=== PATIENT | female | born 1950 | race Caucasian/White ===

== ENCOUNTER 2017-11-19 02:53 | Inpatient (IN) | payer OTHER, MEDICARE ==
[~2017-11-19] VITALS: Ht 157.5 cm; Wt 55.6 kg
[~2017-11-19 02:53] MED LIST: ALBUTEROL0.09 MG/A1 INH; ALIGN4 M1 PO; ATORVASTATIN CA20 MG PO; AUGMENTIN 875875 MG PO; CALCIUM 600 PLU1 TAB PO; CIPRO 500MG TA500 MG PO; CIPROFLOXACIN500 MG PO; CLEOCIN HCL150 MG PO; FLAG500 PO; LIPITOR20 M2 PO; LOSARTAN POTAS100 M1 PO; LOSARTAN POTAS100 MG PO; METRONIDAZOLE500 MG PO; PROLIA60 MG/1 ML; PROMETHAZINE12.5 M2 PO; TESSALON PERLE100 MG PO; TIMOLOL MALEATE10 M1 OD; TRAMADOL50 MG PO; TRIAMCINOLONE 0.1 GM TOP; TRIAMCINOLONE A15 G2; ULTRAM(MONOGRAP50 MG PO; VITAMIN D31000 UNI2 PO; VOLTAREN100 GM TOP; XALATAN2.5 ML OPH; ZOFRAN ODT4 MG SL
[2017-11-19] MEDS ORDERED: ZANTAC150 M1 PO (10:22)
--- NOTE | 2017-11-19 15:15 | Operative Report ---
Operative/Inv Procedure Report Surgery Date: 11/19/17 Name of Procedure: 1. Laparoscopic sigmoid colectomy 2. Laparoscopic takedown splenic flexure Pre-Operative Diagnosis: Chronic diverticulitis Post-Operative Diagnosis: Same Estimated Blood Loss: less than 50ml Surgeon/Firewall Security Engineer: Freddy JIMENEZ,Blade Tatum/Kailash LOERA Anesthesia: general endotracheal tube Drains: None Specimens: Sigmoid colon Complications: None Operative Indication: 67-year-old woman with chronic, recurrent sigmoid diverticulitis presents for elective resection Operative/Procedure Note Note: Patient brought to the operative laid supine. Gen. anesthesia was obtained and she placed in lithotomy position. Her abdomen was prepped and draped. The suprapubic umbilical region was infiltrated local anesthesia and a transverse incision made sharply. We dissected down the fascia which was grasped with [place]'s and a fasciotomy created sharply. Stay sutures placed and a blunt Colon port was placed. Pneumoperitoneum was achieved. A 5 mA ports placed the suprapubic region, a 5 mm port was placed in the left mid abdomen and a 12 mm ports placed in the right lower quadrant after local anesthesia instilled under direct vision the camera. She's placed in Trendelenburg and rotated towards the right. The abdomen was explored. The small bowel was mobilized out of the pelvis and placed in the right upper quadrant. There were numerous adhesions of sigmoid colon in the pelvis. These were taken down with cautery thus allowing mobilization of it. There is an area of chronic inflammation in the distal sigmoid which appeared to be either a large diverticulum or contained perforation. There is no abscess. We chose our lines of transection and marked the bowel with cautery. We then mobilized the bowel laterally along the white line of Toldt. Then took down the mesentery on the proximal aspect up to the level the bowel. This was performed with the LigaSure device. We identified the left ureter, it was well out of our operative field. The sigmoid vessels were then taken down with the LigaSure device to the rectosigmoid junction, which was very low lying in the pelvis. We dissected down to the rectal wall. At this point it appeared that we would not have enough length to create a tension-free anastomosis. I decided to take down the left colon completely including the splenic flexure. She's placed in reverse Trendelenburg to accomplish this. Dissection was carried forth with LigaSure and cautery dissection. Once the splenic flexure was taken down was clear that we had plenty of length. The rectosigmoid junction was then divided with the Endo TOMMY purple load. I then created a small Pfannenstiel incision sharply and with cautery. We incised the fascia longitudinally and placed the Alonso retractor. The cut end of the bowel was then brought up through the wound and purse juan placed on the proximal margin. The sigmoid was transected and passed off the field. The pursestring was opened and sized. The bowel was very small and 25 mm anvil was the largest sizer we could place. We therefore chose a 25 mm anvil placed into the cut end the bowel and cinched up. The fatty tissue overlying the anastomosis was taken off with cautery. Large diverticulum was imbricated into the central aspect of the anvil with 3-0 silk. Once were happy with the left colon and replaced into the perineal cavity and remove the Alonso. The fascia was closed with 0 Maxon suture. We regained pneumoperitoneum and position the patient back in Trendelenburg. I broke scrub and went below and sized the rectum to a 25 EEA. The staplers placed up through the rectum to the upper portions of it. An end-to-end anastomosis was then created laparoscopically. 2 intact donuts were seen. The anastomosis was then tested under water with air insufflation. There was no leak of air. We then evacuated the gas and concluded the operation. The ports were delivered and passed off the field. The fascia was closed with 0 Vicryl suture. Skin incisions closed with sobia. Sterile dressings were applied sponge and needle counts are correct CC: Victor Hugo JIMENEZ,Everett Patel; Shanel Wheeler APRN
--- NOTE | 2017-11-19 15:29 | Admission Core Measures ---
Acute Coronary Syndrome (CM) ACS Core Measures Acute Coronary Syndrome Diagnosis No Congestive Heart Failure (NEW) CHF Core Measures Congestive Heart Failure Diagnosis No Cerebrovascular Accident (NEW) CVA Core Measures CVA/TIA Diagnosis No Venous Thromboembolism VTE Core Dot (View Protocol) VTE Risk Factors No risk factors No Mechanical VTE Prophylaxis d/t N/A MechProphylax Ordered No VTE Pharm Prophylaxis d/t NA PharmProphylax ordered Problem List As ranked by this Provider includes Assessment & Plan 1. S/P laparoscopic-assisted sigmoidectomy HOME MEDS Home Med List Atorvastatin Calcium (Lipitor) 20 MG TABLET 1 TAB PO DAILY CHOLESTEROL ( Reported) Cholecalciferol (Vitamin D3) 1,000 IU TAB 1 TAB PO DAILY SUPPLEMENT (Reported ) Latanoprost (Xalatan 0.005% 2.5 Ml) 50 GTT/1 BOT GTT 1 GTT OPH NIGHTLY GLAUCOMA - BOTH EYES (Reported) Losartan Potassium 100 MG TABLET 1 TAB PO DAILY BP (Reported) Ranitidine HCl (Zantac) 150 MG TABLET 1 TAB PO BID PRN heartburn (Reported) Timolol Maleate (Timolol Maleate 10 Ml) 10 ML HUY 1 GTT OD QAM GLAUCOMA ( Reported)
[2017-11-19 18:15] VITALS: BP 126/64
--- NOTE | 2017-11-19 19:40 | PN- General Surgery ---
Subjective Subjective: poc s/p lap sigmoid colectomy 05/15 abdominal pain denies cp, sob, no n+v Objective Vital Signs and I&Os Vital Signs Date Time Temp Pulse Resp B/P B/P Pulse O2 O2 Flow FiO2 Mean Ox Delivery Rate 11/19 1815 97.6 74 18 126/64 95 Room Air Physical Exam: cv; rrr lungs: clear abd: soft, drsgs dry expected tenderness to palp ext: warm, distal cms intact Assessment/Plan Assessment/Plan surgical stable plan titrate pain meds hep sq/alps for dvt prophylaxis oob ambulate with assistance Core Measures Venous Thromboembolism VTE Risk Factors No risk factors No Mechanical VTE Prophylaxis d/t N/A MechProphylax Ordered No VTE Pharm Prophylaxis d/t NA PharmProphylax ordered
[2017-11-19 20:00] VITALS: BP 118/70
[2017-11-20 05:00] VITALS: BP 112/72
--- NOTE | 2017-11-20 07:37 | PN- General Surgery ---
See Addendum Subjective Subjective: No acute overnight events reported. Pt states that she is sore but tolerating discomfort. No nausea or vomitting. No hiccupping or belching. No flatus. Has yet to ambulate. Was very tired post op and did not take in more than a few sips of clears. Reports discomfort with stafford catheter, would prefer to void. Objective Vital Signs and I&Os Vital Signs Date Time Temp Pulse Resp B/P B/P Pulse O2 O2 Flow FiO2 Mean Ox Delivery Rate 11/20 0500 99.6 65 18 112/72 94 Room Air 11/19 1999 98.3 73 18 118/70 96 Room Air 11/19 1815 97.6 74 18 126/64 95 Room Air Intake & Output 11/20 0811/20 0000 11/19 1600 11/19 0811/19 0000 11/18 1600 Intake Total 240 240 Output Total Balance 240 240 Intake, Oral 240 240 Patient 123 lb Weight Weight Standing Scale Measurement Method Physical Exam: General: Alert and oriented x3, no acute distress Cardiac: RRR, s1s2 Pulm: CTA bilaterally, non-labored respiratory effort, no supplemental o2 Abd: Softly distended, jaclyn-incisional tenderness but no peritonitic signs. Normoactive bowel sounds auscultated. Dressings dry and intact. No surrounding erythema. Extremities: Moves all extremities, distal sensation grossly intact. Skin warm and wll perfused. DP pulses palpable bilaterally. ALPS in place. Bilateral calves soft and nontender Assessment/Plan Assessment/Plan This is a 67 year old, POD 1, s/p lap sigmoid colectomy for diverticulitis -DC stafford catheter this am -IV fluids to 50 for now, dc when tolerating adequate po, likely later this am -Continue ALPS/hep sub q for dvt ppx -OOB encouraged -Incentive spirometry encouraged -Await return of bowel function Will discuss poc with Dr. Hayes Core Measures Venous Thromboembolism VTE Risk Factors No risk factors No Mechanical VTE Prophylaxis d/t N/A MechProphylax Ordered No VTE Pharm Prophylaxis d/t NA PharmProphylax ordered
[2017-11-20 08:29] LABS: ABSOLUTE BASOPHIL COUNT 0 /CUMM (0.0-0.2); ABSOLUTE EOSINOPHIL COUNT 0 /CUMM (0.0-0.7); ABSOLUTE GRANULOCYTE CT 10.9 /CUMM (1.4-6.5); ABSOLUTE LYMPH COUNT 0.8 /CUMM (1.2-3.4); ABSOLUTE MONOCYTE COUNT 1.1 /CUMM (0.10-0.60); BASOPHIL % 0.1 % (0.0-2.0); EOSINOPHIL % 0 % (0-5); HEMATOCRIT 34.3 % (37-47); MEAN CORPUSCULAR HGB 30.7 PG (27.0-31.0); MEAN CORPUSCULAR HGB CONC 34.6 G/DL (33.0-37.0); MEAN CORPUSCULAR VOLUME 88.8 FL (81.0-99.0); MEAN PLATELET VOLUME 8.4 FL (7.4-10.4); PLATELET COUNT 186 /CUMM (130-400); RBC DISTRIBUTION WIDTH 14.2 % (11.5-14.5); RED BLOOD CELL CT 3.86 /CUMM (4.20-5.40); WHITE BLOOD CELL COUNT 12.8 /CUMM (4.8-10.8)
[2017-11-20 09:18] LABS: GRANULOCYTE % 85.1 % (42.2-75.2)
[2017-11-20 09:20] VITALS: BP 110/60
[2017-11-20 14:03] VITALS: BP 112/62
--- NOTE | 2017-11-20 16:56 | Patient Discharge Instructions ---
Discharge Instructions General Discharge Information You were seen/treated for: Chronic diverticulitis You had these procedures: 1. Laparoscopic sigmoid colectomy 2. Laparoscopic takedown splenic flexure Watch for these problems: Increased pain, fever, chills, redness, swelling, drainage from/around your incisions Call Surgeon to remove: [place] No bath, but you may shower: Yes Other wound care: Keep incisions clean an dry Change dressing daily as needed Diet Continue normal diet: Yes Activity Activity Self Limited: Yes Pounds, do NOT lift more than: 10 (x 4 weeks) Acute Coronary Syndrome Inclusion Criteria At DC or during hospital stay patient has or had the following: ACS DIAGNOSIS No Discharge Core Measures Meds if any: Prescribed or Continued at Discharge Meds if any: NOT Prescribed or Continued at Discharge Congestive Heart Failure Inclusion Criteria At DC or during hospital stay patient has or had the following: CHF DIAGNOSIS No Discharge Core Measures Meds if any: Prescribed or Continued at Discharge Meds if any: NOT Prescribed or Continued at Discharge Cerebrovascular accident Inclusion Criteria At DC or during hospital stay patient has or had the following: CVA/TIA Diagnosis No Discharge Core Measures Meds if any: Prescribed or Continued at Discharge Meds if any: NOT Prescribed or Continued at Discharge Venous thromboembolism Inclusion Criteria VTE Diagnosis No VTE Type NONE VTE Confirmed by (Test) NONE Discharge Core Measures - Per Current guidelines, there needs to be overlap - treatment for the first 5 days of Warfarin therapy. - If discharged on Warfarin prior to 5 days of - overlap therapy, the patient will need to be - assessed for post discharge needs including - *Post discharge parental anticoagulation - *Warfarin and/or parental anticoagulation education - *Follow up date to check INR post discharge At least 5 days overlap therapy as Inpatient No Meds if any: Prescribed or Continued at Discharge Note: Overlap Therapy is Warfarin and Anticoagulant Meds if any: NOT Prescribed or Continued at Discharge
[2017-11-20 22:21] VITALS: BP 110/70
[2017-11-21 06:46] VITALS: BP 108/72
--- NOTE | 2017-11-21 07:22 | PN- General Surgery ---
See Addendum Subjective Subjective: Reports loose bms overnight. Passing flatus. Tolerating clears. "hungry". Ambulating well. No dizziness. No shortness of breath. No chest pains. Voiding well. Objective Vital Signs and I&Os Vital Signs Date Time Temp Pulse Resp B/P B/P Pulse O2 O2 Flow FiO2 Mean Ox Delivery Rate 11/21 0646 98.2 70 20 108/72 92 11/20 2221 98.8 68 20 110/70 95 Room Air 11/20 1403 98.6 72 18 112/62 96 Room Air 11/20 0921 64 110/60 11/20 0920 98.8 64 20 110/60 97 Room Air Intake & Output 11/21 0800 11/21 0000 11/20 1600 11/20 0800 11/20 0000 11/19 1600 Intake Total 689 943 6072 240 240 Output Total 750 1150 950 Balance 240 -30 -50 -710 240 Intake, IV 300 Intake, Oral 240 720 800 240 240 Number 1 0 0 Bowel Movements Output, Urine 750 1150 950 Patient 123 lb Weight Weight Standing Scale Measurement Method Physical Exam: General - alert & oriented x 3. comfortable. no acute distress. Lungs - clear bilaterally. no w/r/r. Cardiac - s1s2. reg. Abdomen - soft. active bowel sounds. dressings c/d/i. expected jaclyn-incisional tenderness. Extremities - warm bilaterally. no c/c/e. calves soft and nontender b/l. Current Medications: Current Medications Sig/Lelia Start time Last Medication Dose Route Stop Time Status Admin Acetaminophen 500 MG Q4-6 PRN PRN 11/20 1545 AC PO Acetaminophen 1,000 MG Q6 11/19 2200 DC 11/20 IV 11/20 1759 1148 Atorvastatin Calcium 20 MG 11/20 AC 11/20 PO 2153 Atorvastatin Calcium 20 MG DAILY 11/20 1000 DC PO Cholecalciferol 1,000 IU 0 11/20 2200 AC 11/20 PO 2153 Cholecalciferol 1,000 IU DAILY 11/20 1000 DC PO Dextrose/Sodium 1,000 ML .Q20H 11/19 1530 DC 11/20 Chloride IV 0329 Famotidine 20 MG 0 11/20 2200 AC PO Famotidine 20 MG DAILY 11/20 1000 DC PO Heparin Sodium 5,000 UNIT Q8 11/19 2200 AC 11/20 (Porcine) SC 0526 Ketorolac 15 MG Q6 11/19 1824 DC 11/20 Tromethamine IV 0527 Latanoprost 1 GTT QPM 11/19 1515 AC 11/20 OPH 2154 Losartan Potassium 100 MG DAILY 11/20 1000 AC PO Ondansetron HCl 4 MG Q6P PRN 11/19 1530 AC 11/20 IV 1009 Timolol Maleate 1 GTT QAM 11/20 1000 AC 11/20 OPH 0848 Tramadol HCl 50 MG Q4-6 PRN PRN 11/20 1545 AC 11/21 PO 0333 Results Last 48 Hours of Labs: Laboratory Tests 11/20 0645 Chemistry Sodium (137 - 145 mmol/L) 138 Potassium (3.5 - 5.1 mmol/L) 3.5 Chloride (98 - 107 mmol/L) 104 Carbon Dioxide (22 - 30 mmol/L) 26 Anion Gap (5 - 16) 8 BUN (7 - 17 mg/dL) 10 Creatinine (0.5 - 1.0 mg/dL) 0.7 Estimated GFR (>60 ml/min) > 60 BUN/Creatinine Ratio (7 - 25 %) 14.3 Hematology CBC w Diff NO MAN DIFF REQ WBC (4.8 - 10.8 /CUMM) 12.8 H RBC (4.20 - 5.40 /CUMM) 3.86 L Hgb (12.0 - 16.0 G/DL) 11.9 L Hct (37 - 47 %) 34.3 L MCV (81.0 - 99.0 FL) 88.8 MCH (27.0 - 31.0 PG) 30.7 MCHC (33.0 - 37.0 G/DL) 34.6 RDW (11.5 - 14.5 %) 14.2 Plt Count (130 - 400 /CUMM) 186 MPV (7.4 - 10.4 FL) 8.4 Gran % (42.2 - 75.2 %) 85.1 H Lymphocytes % (20.5 - 51.1 %) 6.5 L Monocytes % (1.7 - 9.3 %) 8.3 Eosinophils % (0 - 5 %) 0 Basophils % (0.0 - 2.0 %) 0.1 Absolute Granulocytes (1.4 - 6.5 /CUMM) 10.9 H Absolute Lymphocytes (1.2 - 3.4 /CUMM) 0.8 L Absolute Monocytes (0.10 - 0.60 /CUMM) 1.1 H Absolute Eosinophils (0.0 - 0.7 /CUMM) 0 Absolute Basophils (0.0 - 0.2 /CUMM) 0 Assessment/Plan Assessment/Plan This is a 67 year old female with hx htn, hld, gerd, glaucoma, diverticulitis POD#2 s/p lap sigmoid colectomy for diverticulitis tolerating clears. +bms. advance to regular diet ultram/tylenol prn pain control oob/ambulating hep sc - dvt ppx no labs ordered d/c planning ?today vs tomorrow if tolerating food will d/w Core Measures Venous Thromboembolism VTE Risk Factors No risk factors No Mechanical VTE Prophylaxis d/t N/A MechProphylax Ordered No VTE Pharm Prophylaxis d/t NA PharmProphylax ordered
[2017-11-21 08:02] VITALS: BP 108/60
--- NOTE | 2017-11-21 10:55 | Surgical Discharge Summary ---
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 Home Who Do You Live With? Spouse Services at Home: None What is Your Primary Language? Pakistani Review of Systems: see preop hp Hospital Course Course Attending Physician: Blade Hayes MD Primary Care Physician: Shanel Wheeler APRN Hospital Course: Admitted after laparoscpioc sigmoid colectomy. Postoperatively she convalesced extremely well with return of bowel function the following morning. She as ambulatory without assistance. Allergies: Coded Allergies: Sulfa (Sulfonamide Antibiotics) (RASH THATS LOOKS LIKE SUNBURN 11/11/17) clarithromycin (NAUSEA/DIARRHEA 11/11/17) codeine (NAUSEA, HEART PALPITATIONS, EFFECTS BP, LIGHT HEADED 11/11/17) hydromorphone (From DILAUDID) (N/V 11/11/17) oxycodone (NAUSEA, HEART PALPITATIONS, LIGHT HEADED AND EFFECTS BP 11/11/17) pseudoephedrine (CAN'T TAKE BECAUSE OF BP, MAKES LIGHT HEADED AND HEART PALP 03/23) Significant Procedures: Laparoscopic sigmoid colectomy Disposition Summary Disposition Principal Diagnosis: Diverticulitis Additional Diagnosis: none Discharge Disposition: home or self care Discharge Instructions General Discharge Information Code Status: Full Code Patient's Diet: regular low fiber Patient's Activity: no lifting >20lbs Follow-Up Instructions/Appts: 2 weeks. Medications at Discharge Discharge Medications: Continue taking these medications: Timolol Maleate (Timolol Maleate 10 Ml) 10 ML HUY 1 Drop Right Eye Every Morning Qty = 10 Comments: PER PT Latanoprost (Xalatan) 0.005 % DROPS 1 Drop In the eye Every night Comments: Last Taken: 11/21/17 Time: 2200PM Denosumab (Prolia) 60 MG/ML SYRINGE 60 Milligram Comments: NOT GIVEN IN HOSPITAL Cholecalciferol (Vitamin D3) 1,000 UNIT TABLET 1 Tablet ORAL DAILY Comments: Last Taken: 11/20/17 Time: 2200PM Atorvastatin Calcium (Lipitor) 20 MG TABLET 1 Tablet ORAL DAILY Comments: Last Taken: 11/20/17 Time: 2200PM Losartan Potassium (Losartan Potassium) 100 MG TABLET 1 Tablet ORAL DAILY Comments: NOT GIVEN IN HOSPITAL Triamcinolone Acetonide (Triamcinolone Acetonide) 0.5 % CREAM..G. Comments: NOT GIVEN Diclofenac Sodium (Voltaren) 1 % GEL..GRAM. 1 Application On the skin 4XD Comments: NOT GIVEN IN HOSPITAL Ranitidine HCl (Zantac) 150 MG TABLET 1 Tablet ORAL TWICE DAILY as needed for heartburn Comments: NOT GIVEN IN HOSPITAL Start taking the following new medications: Tramadol HCl (Ultram) 50 MG TABLET 1-2 Tablet ORAL Every 6-8 Hours as Needed as needed for pain control Qty = 30 No Refills Comments: Last Taken:11/21/17 Time: 0300AM Copies To: Victor Hugo JIMENEZ,Everett Patel; Shanel Wheeler APRN
[2017-11-21] MEDS ORDERED: ULTRAM50 M1 PO (11:46)
== END 2017-11-21 13:07 | DRG 331 ==
LOC: 2NB 02:53 → SDA 02:53 → ENRESERV 16:54 → ENTRNSPT 17:40 → EDTRNSPTSTS 17:46 → 2NB 17:57 → CMPTRNSPT 18:13 → ENPENDDIS 11-21 12:52 → ENTRNSPT 11-21 12:59 → EDTRNSPTSTS 11-21 13:01 → 2NB 11-21 13:07 → CMPTRNSPT 11-21 13:16
PROVIDERS: Physician Assistant
PROC: 0DTN4ZZ Resection of Sigmoid Colon, Percutaneous Endoscopic Approach (ICD-10-PCS; principal; 2017-11-19)
PROC: 0DNL4ZZ Release Transverse Colon, Percutaneous Endoscopic Approach (ICD-10-PCS; 2017-11-19)
DX: K57.30 Diverticulosis of large intestine without perforation or abscess without bleeding (principal); K31.84 Gastroparesis; I10 Essential (primary) hypertension; K21.9 Gastro-esophageal reflux disease without esophagitis; M85.80 Other specified disorders of bone density and structure, unspecified site
CPT/HCPCS: 2NBSP; 36415; 82436; 87086; C9290; C9399; J0131; J0690; J1644; J2405; J3490; J7042